=== PATIENT | male | born 1945 | race Caucasian/White ===

== ENCOUNTER 2017-09-19 10:55 | Emergency (ER) | payer OTHER ==
--- NOTE | 2017-09-19 12:04 | EDPHY ---
H & P Stated Complaint: urinary retention/urologist is in [place] he feels that is too far to dri Time Seen by Provider: 09/19/17 11:32 HPI/ROS: CHIEF COMPLAINT: Difficulty urinating, right flank pain HISTORY OF PRESENT ILLNESS: 72-year-old male presents with difficulty urinating and right flank pain. Onset of a vague discomfort in the right flank 2 months ago. The flank pain has been mild and intermittent. The associated with difficulty urinating over the past week. Also has constipation for the related to IBS. Switched to MiraLax with some relief recently. No abdominal pain. REVIEW OF SYSTEMS: complete 10 point ROS negative except at noted in the HPI - Personal History Current Tetanus/Diphtheria Vaccine: Yes - Medical/Surgical History PMH: COPD, oxygen-dependent Hx Asthma: No Hx Chronic Respiratory Disease: Yes Hx Diabetes: No Hx Cardiac Disease: No Hx Renal Disease: No Hx Cirrhosis: No Hx Alcoholism: No Hx HIV/AIDS: No Hx Splenectomy or Spleen Trauma: No Other PMH: pmh- hld, copd, prostate CA. psh- appy, hernia repair, brachy therapy, collapsed ureter repair, turp - Social History Smoking Status: Light smoker - Physical Exam Exam: General Appearance: Alert, pleasant Eyes: Pupils equal and round, no conjunctival pallor ENT, Mouth: Mucous membranes moist Neck: Normal inspection Respiratory: Lungs are clear to auscultation Cardiovascular: Regular rate and rhythm Gastrointestinal: Abdomen is soft and nontender Back: No CVA tenderness Neurological: A&O, nonfocal exam Skin: Warm and dry, no rash Extremities: Normal inspection Psychiatric: Mood and affect normal Constitutional: Initial Vital Signs Temperature (C) 36.6 C 09/19/17 10:59 Heart Rate 93 09/19/17 10:59 Respiratory Rate 18 09/19/17 10:59 Blood Pressure 156/89 H 09/19/17 10:59 O2 Sat (%) 85 L 09/19/17 10:59 O2 Delivery Mode Room Air O2 (L/minute) 2 Allergies/Adverse Reactions: Penicillins Allergy (Intermediate, Verified 09/19/17 10:57) fatigue, shallow breathing Home Medications: Medication Instructions Recorded Albuterol [Ventolin Hfa Inhaler] 2 puffs IH Q6 PRN 08/24/15 Aspirin EC [Aspirin EC 81 mg (*)] 162 mg PO DAILY@18 08/24/15 Atorvastatin Calcium [Lipitor 20 20 mg PO DAILY@18 08/24/15 mg (*)] Budesonide/Formoterol 160/4.5 1 puffs IH BID 08/24/15 [Symbicort 160-4.5 Mcg Inh (*)] Tiotropium Inhaler [Spiriva 18 mcg IH DAILY 08/24/15 Handihaler] Psyllium Husk (with Sugar) 1 each PO DAILY 04/02/16 [Metamucil Packet] Ciprofloxacin [Cipro] 500 mg PO BID #30 tab 09/19/17 Medical Decision Making - Diagnostics Imaging Results: CT scan of the abdomen and pelvis read by the radiologist reveals no evidence of ureteral calculus or hydronephrosis. Constipation present. ED Course/Re-evaluation: This patient presents with urinary hesitancy and right flank pain, concerning for pyelonephritis versus kidney stone. Bladder scan: no urinary retention. Urinalysis reveals pyuria. Urine culture sent. Will treat for urinary tract infection. CT scan is unremarkable and reveals no evidence of pyelonephritis or ureteral calculus. Right flank pain likely musculoskeletal etiology. Abdominal exam remains benign on discharge. Will discharge patient home on Cipro. Follow up with Urology. Differential Diagnosis: includes though not limited to kidney stone, pyelonephritis, prostatitis, urethritis - Data Points Laboratory Results: Laboratory Results 09/19/17 11:55 09/19/17 11:55 Microbiology Results: MICROBIOLOGY 09/19/17 11:00 Urine,Clean Catch Urine Culture - Preliminary Three [place] Types Departure - Departure Disposition: Home, Routine, Self-Care Clinical Impression: Urinary tract infection Qualifiers: Urinary tract infection type: acute cystitis Hematuria presence: without hematuria Qualified Code(s): N30.00 - Acute cystitis without hematuria Condition: Good Instructions: Urinary Tract Infection in Men (ED) Referrals: Obie Holt MD [Primary Care Provider] - As per Instructions (Followup on Saturday or Saturday. ) Prescriptions: Ciprofloxacin [Cipro] 500 mg PO BID #30 tab
[2017-09-19 12:08] LABS: PLATELET COUNT 295 10^3/uL (150-400)
[2017-09-19 13:13] VITALS: BP 139/81
== END 2017-09-19 13:19 | disposition home or self-care (01) ==
DX: N30.00 Acute cystitis without hematuria (principal); B96.89 Other specified bacterial agents as the cause of diseases classified elsewhere; J44.9 Chronic obstructive pulmonary disease, unspecified; F17.200 Nicotine dependence, unspecified, uncomplicated; Z79.82 Long term (current) use of aspirin; Z85.46 Personal history of malignant neoplasm of prostate